=== PATIENT | male | born 1990 | race Caucasian/White ===

== ENCOUNTER 2018-02-11 10:18 | Inpatient (IN) | payer BC ==
[2018-02-11] MEDS ORDERED: fentaNYL 100 MCG/2 ML SDV IV ONE (10:30)
[2018-02-11] MEDS ORDERED: Lactated Ringers 1,000 ML IV ONE (10:30)
[2018-02-11 11:32] LABS: CHLORIDE,CL 96 mEq/L (98-106); SODIUM,NA 134 mEq/L (136-145)
[2018-02-11] MEDS ORDERED: fentaNYL 100 MCG/2 ML SDV IVPUSH PRN (11:36)
[2018-02-11] MEDS ORDERED: Lactated Ringers 1,000 ML IV SCH (11:45)
[2018-02-11] MEDS ORDERED: Pantoprazole 40 MG Vial IVPUSH SCH (11:45)
[2018-02-11] MEDS ORDERED: metroNIDAZOLE/Normal Saline 500 MG in Premix Bag 1 BAG IV SCH (12:00)
[2018-02-11] MEDS ORDERED: Levofloxacin/Dextrose 5%-Water 500 MG in Premix Bag 1 BAG IV SCH (13:00)
[2018-02-11] MEDS ORDERED: Iopamidol 612 MG/ML 100 ML Bottle IVPUSH ONE (15:54)
[2018-02-11] MEDS ORDERED: lamoTRIgine 100 MG Tab PO SCH (20:00)
[2018-02-11] MEDS ORDERED: levETIRAcetam 500 MG Tab PO SCH (20:00)
== END 2018-02-11 18:06 | DRG 244 ==
LOC: CC.MS 10:18 → UNDOADMIN 10:18 → CC.MS 11:34
PROVIDERS: ADMIT Nurse Practitioner Family; ATTEND Family Medicine
DX: K57.20 Diverticulitis of large intestine with perforation and abscess without bleeding (principal); G40.909 Epilepsy, unspecified, not intractable, without status epilepticus; R31.9 Hematuria, unspecified; K76.0 Fatty (change of) liver, not elsewhere classified; G43.909 Migraine, unspecified, not intractable, without status migrainosus; F17.210 Nicotine dependence, cigarettes, uncomplicated; E66.9 Obesity, unspecified; Z68.30 Body mass index [BMI] 30.0-30.9, adult; Z79.899 Other long term (current) drug therapy
CPT/HCPCS: 36415; 74019; 74177; 80053; 81001; 85025; 86140; 87040; C9113; J1956; J3010; J3490; J7120; Q9967